=== PATIENT | female | born 1945 | race Caucasian/White ===

== ENCOUNTER 2017-06-17 13:18 | Inpatient (IN) | payer MEDICARE, OTHER ==
[~2017-06-17 13:18] MED LIST: ceFAZolin SODIUM 1 GM VIAL IV PRN
[2017-06-17] MEDS ORDERED: MORPHINE SULFATE 4 MG/ML SYRG SC ONE (13:30)
[2017-06-17] MEDS ORDERED: MORPHINE SULFATE 4 MG/ML SYRG ONE (13:34)
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
[2017-06-17] MEDS ORDERED: DEXTROSE 5%-LACTATED RINGERS 1,000 ML IV PRN (14:34)
[2017-06-17] MEDS ORDERED: BUPIVACAINE HCL 50 ML VIAL IJ ONE (15:00)
[2017-06-17 15:12] LABS: Hemoglobin 13.4 gm/dL (12.5-16.0); Mean Cell Volume 97.3 fl (78-100); Mean Corpuscular Hemoglobin 33.4 pg (27-31); Mean Corpuscular Hgb Conc 34.4 g/dl (32-36); Mean Platelet Volume 9.5 fl (6.0-9.5); Neutrophil # 6.4 K/mm3 (1.3-6.0); Neutrophil % 79.6 % (42-75.0); Platelet Count 231 K/mm3 (150-450); Red Blood Count 4.01 M/mm3 (4.2-5.4); Red Cell Distribution Width 12.5 % (11.5-14.0); White Blood Count 8.1 K/mm3 (4.0-10.5)
[2017-06-17 15:14] LABS: INR 1.01 INR (0.90-1.10); Prothrombin Time (Patient) 10.1 Seconds (9.0-11.0)
[2017-06-17 15:17] LABS: Albumin * 3.7 gm/dl (3.4-5.0); BUN/Creatinine Ratio 14.4 (9.0-21.6); Bilirubin, Total 0.4 mg/dL (0.0-1.1); Ca. Corrected For Albumin 8.6 mg/dL (8.4-10.2); Calcium * 8.7 mg/dL (7.9-10.9); Carbon Dioxide 26.8 mmol/L (24-32.6); Potassium 3.8 mmol/L (3.4-4.6)
--- NOTE | 2017-06-17 16:41 | CONS ---
HPI - General Date of Service: 06/17/17 Narrative: Alice is a 72 yo F who tripped and fell from standing height while cleaning her garage today. She sustained a displaced, valgus impacted L femoral neck fracture and a comminuted intraarticular L distal radius fracture. She was initially evaluated in the [facility] ED and workup revealed the above injuries. I saw her in consultation in the ED. Her biggest complaint was pain and muscle spasm of the L thigh as well as L wrist pain and numbness in the radial 3 fingers of the L hand. She denied hitting her head or LOC. She is an independent community ambulator. - History of Present Illness Allergies/Adverse Reactions: Allergies No Known Allergies Allergy (Unverified 04/28/16 11:36) Home Medications: Home Medications Medication Instructions Recorded Last Taken NK [No Home Medication] 04/08/16 Unknown - Patient's Past Medical History Patient History - Medical: No pertinent hx Patient History - Cardiac/Respiratory: No pertinent hx Patient History - Cancer: No Hx of Cancer Patient History - Surgical Procedures: Colonoscopy, Hysterectomy, Other Patient History - Other: None LMP (females 10-50): Menopausal - Family History Mother Family History - Medical: , Other Family History - Cardiac/Respiratory: No pertinent hx Father Family History - Medical: , Diabetes Type 2, Seizures, Other Family History - Cardiac/Respiratory: No pertinent hx Sister Family History - Medical: No pertinent hx Family History - Cardiac/Respiratory: Asthma - Social History Living Situations: home Abuse History: No History of abuse Psych History: No pertinent hx Smoking Status: Former smoker Have you smoked in the past 12 months: No Alcohol Use: occasionally Drug Use: none - Immunizations Immunizations Up to Date: Yes Hx Pneumococcal Vaccination: Yes History of Influenza Vaccine: No Procedures EXCISION OF LARGE INTESTINE, ENDO, DIAGN (04/28/16) Review of Systems - Review of Systems Narrative: As per HPI, otherwise negative. Physical Examination - Exam Narrative: Gen: A&Ox4, NAD Resp: breathing nonlabored on room air MSK: LLE--> TTP about hip, pain with any attempted ROM, spasm of quads and hamstrings noted, 5/5 EHL/FHL/DF/PF, SILT, palpable DP pulse. LUE--> dorsal angulation deformity at wrist, swollen, diffuse TTP, diminished sensation to light tough in median nerve distribution, cap refill of fingers <3 sec. Radiology: Plain films of the L hip demonstrate a displaced and valgus impacted subcapital femoral neck fracture, Dohr B bone of proximal femur. Plain films of the L wrist demonstrate a displaced and dorsally angulated intraarticular distal radius fracture with prominent volar spike. Vital Signs: Vital Signs - Last Taken Temp 37.1 C 06/17/17 15:47 Pulse 75 06/17/17 15:47 Resp 17 06/17/17 15:47 BP 101/60 06/17/17 15:47 Pulse Ox 98 06/17/17 15:47 O2 Oxygen Delivery Method Room Air - Results and Findings: Narrative: 72 yo F w/ displaced, valgus impacted L subcapital femoral neck fracture and displaced intraarticular L distal radius fracture after fall from standing height. - counseled patient on need for closed reduction and splinting of her L distal radius secondary to median nerve symptoms. I counseled her on the risks and benefits and she consented to proceed. A closed reduction under hematoma block with placement of a sugar tong splint was performed in the ED without complication. See procedure note for details. - I counseled her on treatment options for her L femoral neck fracture including nonoperative treatment with bedrest and pain control, percutaneous pinning, and total hip arthroplasty. Given her age, activity level, and the fracture pattern, I recommended total hip arthroplasty. I counseled her on the risks and benefits including, but not limited to, infection, bleeding, neurovascular injury, aseptic loosening, fracture, persistent pain, persistent limp, leg length discrepancy, DVT/PE, and risks with anesthesia. After discussion she wishes to proceed. - I also counseled her on definitive treatment options for her L distal radius fracture and recommended ORIF as this represents a polytrauma and she will likely require the use of a walker/assistive device secondary to hip surgery. Fixation of her wrist fracture will allow early weight bearing and improved mobility. I counseled her on the risks and benefits including, but not limited to, infection, neurovascular injury, malunion/nonunion, arthrosis, persistent pain, stiffness, wound complications, and risks with anesthesia. After discussion, she wishes to proceed. - Plan for L total hip arthroplasty and ORIF L distal radius tomorrow. - Admit to Medicine service - bedrest, ho, NPO @ midnight, Ancef 2 g pre-op Lab/Microbiology results last 24 hrs: Abnormal/Pending Laboratory Last 24 HRS 06/17/17 06/17/17 15:00 15:00 RBC 4.01 L MCH 33.4 H Neutrophils % 79.6 H Lymphocytes % 13.8 L Neutrophils # 6.4 H Lymphocytes # 1.1 L Anion Gap 14.0 H ALT 16 L - Assessments/Findings (1) Fracture of hip, left, closed Problem: Acute Qualifiers: Encounter type: initial encounter Qualified Code(s): S72.002A - Fracture of unspecified part of neck of left femur, initial encounter for closed fracture (2) Fracture of wrist Problem: Acute Qualifiers: Encounter type: initial encounter Fracture type: closed Laterality: left Qualified Code(s): S62.102A - Fracture of unspecified carpal bone, left wrist , initial encounter for closed fracture
[2017-06-17] MEDS ORDERED: FLU VACC QS2017-18(6MOS UP)/PF 60 MCG/0.5 ML SYRINGE IM ONE (17:00)
[2017-06-17] MEDS: MORPHINE SULFATE 4 MG/ML SYRG IV PRN (20:27)
[2017-06-17] MEDS: DEXTROSE 5%-NORMAL SALINE 1,000 ML IV PRN (20:47)
--- NOTE | 2017-06-17 21:02 | HP ---
Chief Complaint - Chief Complaint Date of Service: 06/17/17 Time of Service: 21:01 Chief Complaint: "Lost balance and fell". Source of HPI- Pt; reliable, ERP report. History of Present Illness: Mrs. Rossi is a 72-yr-old WF pt of Dr. Charlene Khan, family practice physician in [place]. She has no pertinent medical history. Pt states that she was on a two step ladder in her garage putting away stuff from the summer and while stepping down, she missed a step and fell on the Left side of her body. She heard her LT wrist snap during the fall. She denies hitting her head on surface or objects. Also,there was no loss of consciousness with the fall. She managed to walk back inside to the house where she called her son to bring her to the [facility] ER. At the ED, she had multiple radiographic imaging of her LT hip/ pelvis and LT wrist which showed: Fracture of femoral Neck and comminuted intraarticular LT distal radius fracture. Orthopedics (Dr. Nowak) consulted by the ERP and pt was seen and evaluated by him at the ED. The plan is for surgery tomorrow once medically cleared. Pt will be admitted inpatient due to surgical procedure that requires pre-operative and post operative management. - Patient's Past Medical History Patient History - Medical: No pertinent hx Patient History - Cardiac/Respiratory: No pertinent hx Patient History - Cancer: No Hx of Cancer Patient History - Surgical Procedures: Colonoscopy, Hysterectomy, Other Patient History - Other: None LMP (females 10-50): Menopausal - Family History Mother Family History - Medical: , Other Family History - Cardiac/Respiratory: No pertinent hx Family History - Cancer: No pertinent family hx Father Family History - Medical: , Diabetes Type 2, Seizures, Other Family History - Cardiac/Respiratory: No pertinent hx Family History - Cancer: No pertinent family hx Sister Family History - Medical: No pertinent hx Family History - Cardiac/Respiratory: Asthma Family History - Cancer: No pertinent family hx - Social History Living Situations: home Abuse History: No History of abuse Psych History: No pertinent hx Smoking Status: Former smoker Have you smoked in the past 12 months: No Do you dip or chew tobacco: No Patient requests Smoking Cessation Consult: No Initiate information on Smoking Cessation: No Alcohol Use: occasionally Drug Use: none - Immunizations Immunizations Up to Date: Yes Hx Pneumococcal Vaccination: Yes History of Influenza Vaccine: No Review Of Systems (GEN) - Review of Systems Generalized/Overall Review: Absent: Weakness, Chills, Fever, Malaise, Fatigue EENTM: Absent: Eye Pain, Blurred Vision, Nose Congestion Respiratory: Present: Cough. Absent: Shortness of Breath, Orthopnea Cardiac: Absent: Chest Pain, Edema, Palpitations, Syncope Abdominal: Absent: Nausea, Vomiting, Hematemesis, Abdominal Pain, Constipation Genitourinary: Absent: Burning, Itching, Urgency, Frequency Musculoskeletal: Present: Joint Pain. Absent: Back Pain, Joint Swelling Neurological: Absent: Headache, Anxiety, Depressed, Numbness Skin: Absent: Dryness, Lesions Endocrine: Absent: Intolerance to Cold, Flushing, Increased Thirst Misc: All systems neg except as marked Immunizations: IMMUNIZATION HX Immunizations Up to Date Yes History of Influenza Vaccine No Hx Pneumococcal Vaccination Yes Allergies/Adverse Reactions: Allergies Allergy/AdvReac Type Severity Reaction Status Date / Time No Known Allergies Allergy Unverified 04/28/16 11:36 Home Medications: HOME MEDICATIONS NK [No Home Medication] 04/08/16 [Last Taken Unknown] Exam - Exam Vital Signs: Vital Signs - Last Taken Temp 36.7 C 06/17/17 16:05 Pulse 77 06/17/17 16:05 Resp 18 06/17/17 16:05 BP 138/79 06/17/17 16:05 Pulse Ox 96 06/17/17 16:05 Constitutional: Present: Alert, Oriented x3, Cooperative, No distress ENT Exam: Present: normal ENT inspection, hearing grossly normal. Absent: nasal drainage, pharyngeal erythema Eye Exam: bilateral eye: normal inspection, PERRL Neck: Present: non-tender, full range of motion, supple Back Exam: Present: normal inspection, no CVA tenderness Breasts: Present: Exam deferred Respiratory: Present: lungs clear, No rales, No wheezing Cardiovascular/Chest: Present: normal peripheral pulses, regular rate, rhythm, no chest tenderness Abdomen: Present: Normal bowel sounds, soft, nontender /Rectal: Present: Exam deferred Extremity: Present: other - Limited ROM on LLE. Splinted LUE. Skin Exam: Present: warm/dry, no cyanosis Lymphatic: Present: no adenopathy Neurologic: Present: no motor/sensory deficits, alert, oriented x 3 Appearance: Present: appropriate appearance, appropriate insight Eye contact: Present: cooperative, good eye contact, normal speech Thoughts: Present: normal thought pattern, no apparent hallucination Diagnostic Studies: Abnormal Lab Results 06/17/17 06/17/17 Range/Units 15: 15:00 RBC 4.01 L (4.2-5.4) M/mm3 MCH 33.4 H (27-31) pg Neutrophils % 79.6 H (42-75.0) % Lymphocytes % 13.8 L (20-51) % Neutrophils # 6.4 H (1.3-6.0) K/mm3 Lymphocytes # 1.1 L (1.5-3.5) k/mm3 Anion Gap 14.0 H (6.8-13.8) mmol/L ALT 16 L (19-67) U/L Laboratory Results WBC 8.1 K/mm3 (4.0-10.5) 06/17/17 15:00 RBC 4.01 M/mm3 (4.2-5.4) L 06/17/17 15:00 Hgb 13.4 gm/dL (12.5-16.0) 06/17/17 15:00 Hct 39.0 % (37.0-47.0) 06/17/17 15:00 MCV 97.3 fl (78-100) 06/17/17 15:00 MCH 33.4 pg (27-31) H 06/17/17 15:00 MCHC 34.4 g/dl (32-36) 06/17/17 15:00 RDW 12.5 % (11.5-14.0) 06/17/17 15:00 Plt Count 231 K/mm3 (150-450) 06/17/17 15:00 MPV 9.5 fl (6.0-9.5) 06/17/17 15:00 Immature Gran % (Auto) 0.40 % (0.001-0.429) 06/17/17 15:00 Immature Gran # (Auto) 0.03 K/mm3 (0.000-0.0310) 06/17/17 15:00 Neutrophils % 79.6 % (42-75.0) H 06/17/17 15:00 Lymphocytes % 13.8 % (20-51) L 06/17/17 15:00 Monocytes % 5.2 % (0.0-9) 06/17/17 15:00 Eosinophils % 0.6 % (0.0-3.0) 06/17/17 15:00 Basophils % 0.4 % (0.0-1.0) 06/17/17 15:00 Nucleated RBC % 0.0 k/mm3 (0-1) 06/17/17 15:00 Neutrophils # 6.4 K/mm3 (1.3-6.0) H 06/17/17 15:00 Lymphocytes # 1.1 k/mm3 (1.5-3.5) L 06/17/17 15:00 Monocytes # 0.4 k/mm3 (0.0-1.0) 06/17/17 15:00 Eosinophils # 0.1 k/mm3 (0.0-0.7) 06/17/17 15:00 Absolute Basophils 0.0 k/mm3 (0.0-0.1) 06/17/17 15:00 PT 10.1 Seconds (9.0-11.0) 06/17/17 15:00 INR (Anticoag Therapy) 1.01 INR (0.90-1.10) 06/17/17 15:00 Sodium 135 mmol/L (132-142) 06/17/17 15:00 Plasma Sodium 135 mmol/L (130-142) 06/17/17 15:00 Potassium 3.8 mmol/L (3.4-4.6) 06/17/17 15:00 Chloride 98 mmol/L (97-106) 06/17/17 15:00 Carbon Dioxide 26.8 mmol/L (24-32.6) 06/17/17 15:00 Anion Gap 14.0 mmol/L (6.8-13.8) H 06/17/17 15:00 BUN 13 mg/dL (3-23) 06/17/17 15:00 Creatinine 0.90 mg/dL (0.4-1.4) 06/17/17 15:00 Est GFR (Non-Af Amer) 66 mL/min (60-130) 06/17/17 15:00 BUN/Creatinine Ratio 14.4 (9.0-21.6) 06/17/17 15:00 Random Glucose 92 mg/dL (70-110) 06/17/17 15:00 Calcium 8.7 mg/dL (7.9-10.9) 06/17/17 15:00 Calcium Adj for Albumin 8.6 mg/dL (8.4-10.2) 06/17/17 15:00 Total Bilirubin 0.4 mg/dL (0.0-1.1) 06/17/17 15:00 AST 22 U/L (0-48) 06/17/17 15:00 ALT 16 U/L (19-67) L 06/17/17 15:00 Alkaline Phosphatase 72 U/L (50-170) 06/17/17 15:00 Troponin I Less than 0.017 ng/ml (0.00-0.10) 06/17/17 14:55 Total Protein 7.0 gm/dL (6.2-8.2) 06/17/17 15:00 Albumin 3.7 gm/dl (3.4-5.0) 06/17/17 15:00 Blood Type B Positive 06/17/17 15:00 Antibody Screen Negative 06/17/17 15:00 Assessment/Plan - Assessment/Plan (1) Fracture of hip, left, closed Assessment: Pt is a 72-yr-old WF pt who sustained LT hip fracture following a fall which appeared to be accidental. She has no pertinent medical history. The work-up at the ED showed unremarkable Hemogram, chemisties, Troponin and anticoag. studies. The CXR did not have any acute findings. The EKG showed NSR. According to RCRI, she has a score of 0 which is a class 1 out of 4 which carries a 0.4% chance of developing a major cardiac event postoperatively and postoperatively. She is clear to proceed with surgery as the benefits outweighs the risks of not doing any. Will provide supportive cares with: Pain mgt, immobilization, IVF hydration, keep NPO, monitor labs in am. Problem: Acute Qualifiers: Encounter type: initial encounter Qualified Code(s): S72.002A - Fracture of unspecified part of neck of left femur, initial encounter for closed fracture (2) Fracture of wrist Assessment: Evaluated by Ortho. She had closed reduction and splinting of her LT distal radius with the plan for ORIF in am. Problem: Acute Qualifiers: Encounter type: initial encounter Fracture type: closed Laterality: left Qualified Code(s): S62.102A - Fracture of unspecified carpal bone, left wrist , initial encounter for closed fracture
[2017-06-17] MEDS ORDERED: CYCLOBENZAPRINE HCL 10 MG TABLET PO PRN (21:16)
[2017-06-17] MEDS ORDERED: ONDANSETRON HCL/PF 2 MG/ML VIAL IV PRN (23:04)
[2017-06-18] MEDS: MORPHINE SULFATE 4 MG/ML SYRG IV PRN ×2 (00:31→06:57)
[2017-06-18] MEDS: DEXTROSE 5%-NORMAL SALINE 1,000 ML IV PRN ×2 (06:52→20:51)
--- NOTE | 2017-06-18 06:56 | PN ---
Subjective - Date and Time Seen Date: 06/18/17 Time: 06:50 Subjective Narrative: Pt seen this am. She is alert and in no distress. Anticipating surgery this am. No issues overnight according to nursing. Objective - Vitals Vitals: Last Vital Signs Temp 36.5 C 06/18/17 06:44 Pulse 72 06/18/17 06:44 Resp 18 06/18/17 06:44 BP 94/61 06/18/17 06:44 Pulse Ox 96 06/18/17 06:44 - Abnormal Lab Findings Abnormal Lab Findings: Abnormal Lab Results 06/17/17 06/17/17 Range/Units 15:00 15:00 RBC 4.01 L (4.2-5.4) M/mm3 MCH 33.4 H (27-31) pg Neutrophils % 79.6 H (42-75.0) % Lymphocytes % 13.8 L (20-51) % Neutrophils # 6.4 H (1.3-6.0) K/mm3 Lymphocytes # 1.1 L (1.5-3.5) k/mm3 Anion Gap 14.0 H (6.8-13.8) mmol/L ALT 16 L (19-67) U/L - Exam Constitutional: Present: Alert, Oriented x3, Cooperative, No distress ENT Exam: Present: normal ENT inspection Neck: Present: non-tender, full range of motion, supple Breasts: Present: Exam deferred Respiratory: Present: lungs clear, No rales, No wheezing Cardiovascular/Chest: Present: normal peripheral pulses, regular rate, rhythm, no chest tenderness, no edema Abdomen: Present: Normal bowel sounds, soft, nontender /Rectal: Present: Exam deferred Extremity: Present: other - Limited ROM on LLE & Splint on LUE. Skin Exam: Present: warm/dry Lymphatic: Present: no adenopathy Neurologic: Present: no motor/sensory deficits, alert, oriented x 3 Appearance: Present: appropriate appearance, appropriate insight Eye contact: Present: cooperative, good eye contact, normal speech Thoughts: Present: normal thought pattern, no apparent hallucination [facility]auti Physician Documentation - Urinary Catheter Management Urethral ([place]ry) Date of Insertion: 06/17/17 Time of Insertion: 21:30 Assessment/Plan - Problems/Diagnosis (1) Fracture of hip, left, closed Problem: Acute Qualifiers: Encounter type: initial encounter Qualified Code(s): S72.002A - Fracture of unspecified part of neck of left femur, initial encounter for closed fracture Narrative: Pt is a 72-yr-old WF pt who sustained LT hip fracture following a fall which appeared to be accidental. She has no pertinent medical history. The work-up at the ED showed unremarkable Hemogram, chemisties, Troponin and anticoag. studies. The CXR did not have any acute findings. The EKG showed NSR. According to RCRI, she has a score of 0 which is a class 1 out of 4 which carries a 0.4% chance of developing a major cardiac event postoperatively and postoperatively. She is clear to proceed with surgery as the benefits outweighs the risks of not doing any. Will provide supportive cares with: Pain mgt, immobilization, IVF hydration, keep NPO, monitor labs. (2) Fracture of wrist Problem: Acute Qualifiers: Encounter type: initial encounter Fracture type: closed Laterality: left Qualified Code(s): S62.102A - Fracture of unspecified carpal bone, left wrist , initial encounter for closed fracture Narrative: Evaluated by Ortho. She had closed reduction and splinting of her LT distal radius with the plan for ORIF today.
[2017-06-18 08:21] LABS: Hematocrit 37.3 % (37.0-47.0); Hemoglobin 12.6 gm/dL (12.5-16.0); Mean Cell Volume 97.9 fl (78-100); Mean Corpuscular Hemoglobin 33.1 pg (27-31); Mean Corpuscular Hgb Conc 33.8 g/dl (32-36); Mean Platelet Volume 8.9 fl (6.0-9.5); Neutrophil # 3.9 K/mm3 (1.3-6.0); Platelet Count 199 K/mm3 (150-450); Red Blood Count 3.81 M/mm3 (4.2-5.4); Red Cell Distribution Width 12.8 % (11.5-14.0); White Blood Count 5.1 K/mm3 (4.0-10.5)
[2017-06-18 08:26] LABS: BUN/Creatinine Ratio 11.8 (9.0-21.6); Calcium * 8.1 mg/dL (7.9-10.9); Carbon Dioxide 30.6 mmol/L (24-32.6); Estimated Creat Clear 61.2; Potassium 3.6 mmol/L (3.4-4.6)
[2017-06-18] MEDS ORDERED: ceFAZolin SODIUM/DEXTROSE,ISO 2 GM/50 ML BAG IV ONE (09:00)
[2017-06-18] MEDS ORDERED: RINGER'S SOLUTION,LACTATED 1,000 ML IV ONE ×3 (12:55→15:59)
[2017-06-18] MEDS ORDERED: ceFAZolin SODIUM 1 GM VIAL IV ONE (13:30)
[2017-06-18] MEDS: VANCOMYCIN HCL 1 GM VIAL TP ONE (15:00)
[2017-06-18] MEDS ORDERED: BUPIVACAINE HCL 50 ML VIAL IJ ONE (16:30)
[2017-06-18] MEDS ORDERED: ONDANSETRON HCL/PF 2 MG/ML VIAL IV PRN (17:51)
[2017-06-18] MEDS ORDERED: MAG HYDROX/ALUMINUM HYD/SIMETH 30 ML UDC PO PRN (17:51)
[2017-06-18] MEDS ORDERED: MAGNESIUM HYDROXIDE 30 ML UDC PO PRN (17:51)
[2017-06-18] MEDS ORDERED: MORPHINE SULFATE 2 MG/ML DISP.SYRIN IV PRN (17:51)
[2017-06-18] MEDS ORDERED: PROMETHAZINE HCL 5 MG in DEXTROSE 5 % IN WATER 50 ML IV PRN ×2 (17:51)
[2017-06-18] MEDS ORDERED: diphenhydrAMINE HCL 50 MG/ML VIAL IV PRN (17:51)
[2017-06-18] MEDS ORDERED: oxyCODONE HCL/ACETAMINOPHEN 1 TAB TABLET PO PRN (17:51)
--- NOTE | 2017-06-18 18:11 | OR ---
Operative Report - Dictated Report Narrative: Date: 06/18/2017 Preoperative diagnosis: 1. Left displaced, subcapital femoral neck fracture 2. Left displaced, intra-articular distal radius fracture Postoperative diagnosis: 1. Left displaced, subcapital femoral neck fracture 2. Left displaced, intra-articular distal radius fracture with 2 articular fragments Procedure: 1. Left Total hip arthroplasty. 2. Open reduction internal fixation of left intra-articular distal radius fracture with 2 articular fragments Surgeon: Dalton Nowak M.D. Aluminum Siding Applicator: Alejandro Ramirez PA-C Anesthesia: General with spinal anesthetic for pain control Complications: None Tourniquet time: 74 minutes at 250 mmHg left upper extremity Specimens: Bone for disposal. Estimated blood loss: 250 milliliters. Retained implants: Depuy [place] size 5 femoral stem standard offset. Size 58 millimeter ouside diameter 3-hole [place] Gription acetabular cup. 58 millimeter outside by D6 millimeter inside diameter highly cross-linked acetabular liner. 36 millimeter diameter + 8.5 millimeter cobalt chromium femoral head. Cancellous 6.5mm screw 30 millimeter length. [employer] D-rad standard distal radius locking plate with associated screws. Indications: Alice Is a 72-year-old female independent community ambulator who sustained a displaced left femoral neck fracture as well as a displaced left intra-articular distal radius fracture after a fall from a ladder in her garage. She was initially seen in the [facility] ED where workup revealed the above injuries. I discussed treatment options with her and based on her activity level, polytrauma, and fracture patterns, I recommended left total hip arthroplasty as well as open reduction internal fixation of her left distal radius fracture. Patient wished to proceed with surgical treatment. The risks , benefits, and alternatives were discussed in clinic. The risks of , blood clots, bleeding, infection, nerve/tendon blood vessel/ injury, malposition of components, dislocation and/or instability of joint, intraoperative fracture, postoperative limited range of motion, persistent pain , failure of components, and need for additional procedures. Patient wished to proceed. Consent was obtained after answering all questions. Procedure: After marking the correct extremity on the floor, the patient was taken to the operating room. A timeout was performed. IV antibiotics consisting of 2 g of Ancef were administered prior to the procedure. A spinal anesthetic was induced by anesthesia. A Landry catheter was inserted. The patient was then transitioned to a lateral position on a well-padded pegboard. And an axillary roll was placed. The head was in neutral position. The non- operative down leg was well-padded with SCD and MICHELLE hose in place. The arms were supported and padded to protect from any undue pressure on the bony prominences and nerves. Well-padded anterior and posterior pelvic and chest posts were secured in order to maintain a stable position of the pelvis. This was placed so that the pelvis was perpendicular to the floor. The body was in line with the pelvis. Once it was felt that we had protected all the bony prominences and the patient was well secured with a safety belt as well, the leg was pre-scrubbed with alcohol, prepped and draped in a standard sterile fashion. A standard anterior lateral hip incision was marked out over the greater trochanter. [place]an drapes were then placed. The skin incision was then made. Sharp dissection with a scalpel utilizing cautery for hemostasis was carried out down to the gluteus and iliotibial band fascia. This was split in line with the skin incision. The greater trochanter bursa was excised. The anterior and posterior margins of the abductor tendon were identified. The anterior 1/3 of the tendon was tagged and reflected off the greater trochanter leaving a sleeve of tendon for repair at the completion of the case. This exposed the underlying hip joint capsule. A limb length stitch was placed in the skin and referenced off a dsuty on the greater trochanter for evaluation of intraoperative limb lengths. An inverted T-type capsulotomy was made extending this up to the brim of the acetabulum. Using Homans to assist with elevation of the soft tissues off the anterior, superior, and inferior aspects of the femoral neck, the hip was then placed in a figure 4 position and the femoral neck fracture was completed leaving the femoral head in the acetabulum. With the leg in an externally rotated and adducted position, the cutting flag was utilized in order to dusty for a standard femoral neck cleanup cut approximately a fingerbreadth above the level of the lesser trochanter. This was done while protecting the surrounding soft tissues with Homans. The femoral head was then removed with a corkscrew and sized for guidance on preparation of the acetabulum. It was noted that there was minimal cartilage degeneration on both the femoral head and weightbearing portions of the acetabulum. We then returned the leg to the table and turned our attention to the acetabulum. While protecting the surrounding soft tissues, the labrum and remaining tissue in the fovea were excised using a scalpel and cautery. A series of reamers up to size 57 millimeter were utilized to prepare the acetabulum. The final reamer had good purchase and exposed the bleeding subchondral bone. The acetabulum was then thoroughly irrigated ensuring that all bony and cartilaginous materials were removed and the final acetabular shell was impacted into place. This was placed in approximately 45 degrees of abduction and 20 degrees of anteversion utilizing the outrigger and body axis for alignment. This had a good press fit. A 30 x 6.5mm cancellous screw was placed in the posterior superior quadrant of the acetabulum. The shell was then thoroughly irrigated and the final polyethylene was impacted into place ensuring that it seated completely. This was then protected with a sponge while we returned our attention to the femur. With the leg in a figure 4 position utilizing Homans for soft tissue protection , a box cutting osteotome, followed by Charnley awl, followed by serial reamers and broaches were utilized in order to prepare the femur. It was found that a size 5 broach gave good axial and rotational stability. The calcar reamer was utilized in order to clean up the cut edges. The proximal femur was visualized to ensure that there were no signs of fracture. A series of heads and necks were trialed. It was found that a standard neck and a + 8.5 mm femoral head gave good overall stability. There was minimal longitudinal instability. With the leg in the position of sleep the femoral head was well covered. Hip range of motion was able to reach full extension and external rotation to greater than 75 degrees prior to impingement along the posterior acetabulum. The hip was able to be flexed to greater than 90 degrees with internal rotation greater than 60 degrees prior to anterior impingement. The limb lengths were near equal based on comparison to the contralateral side in the prior placed limb length stitch. At this point the trial implants were removed. The femur was thoroughly irrigated. The final implants were impacted in the place and the hip was reduced. 1 g of vancomycin powder was placed in the joint for infection prophylaxis. The capsule was repaired with interrupted #1 Vicryl. The abductor tendon was repaired to the greater trochanter utilizing #5 Ethibond through drill holes. This was oversewn with #1 Vicryl. The fascia was closed with interrupted #1 Vicryl. The wounds were thoroughly irrigated as we closed in layers. The deep fat layers were closed with 0 Vicryl. The subcutaneous tissue was closed with interrupted 3-0 Vicryl and the skin with a running subcuticular 3-0 monocryl and sealed with a Prineo dressing. All sponge, needle , blade, and instrument counts were correct prior to closing the wounds. Sterile dressings consisting of 4 x 4's, ABD, and tape were applied. At this point all drapes were taken down and the patient was transitioned to the supine position on the operating table in preparation for ORIF of her distal radius. An arm board was attached to the left side of the table. All bony prominences were well-padded. A well-padded tourniquet was applied to the upper surgical arm. The arm was pre-scrubbed with chlorhexidine and prepped and draped in a standard sterile fashion. After exsanguinating the extremity and inflating the tourniquet to 250 mmHg, a longitudinal incision was made over the flexor carpi radialis. This was sharply dissected down through the skin to the tendon sheath. This was incised in line with the tendon. The tendon was mobilized radially and the deep fascia was incised. The flexor pollicis longus was mobilized ulnarly exposing the pronator quadratus. Pronator quadratus was elevated off the radial aspect of the distal radius exposing the fracture. The fracture was noted to be primarily extra-articular with a small dorsal lunate facet fragment. Using mini C-arm, the fracture was reduced and preliminarily pinned in place through the radial styloid. Once it was felt that we adequately preliminarily stabilized the fracture, the plate was pinned into place. This was visualized on AP and lateral views to be centered over the distal radius as well as not excessively distal. Once it was felt that the plate was in the correct position a series of distal locking and proximal non- locking screws were placed. Mini C-arm was utilized in order to confirm the length and placement of the screws. We were able to capture the dorsal lunate facet fragment with the ulnar-most locking screw through the plate. Once the wrist was stabilized, final images were obtained to ensure that the screws were not prominent dorsally nor into the joint space. The distal radial ulnar joint was then stressed in supination and pronation and neutral, and it was noted to be stable. It was felt that the fracture was adequately stabilized and the wounds were then thoroughly irrigated. Skin was closed with interrupted 4-0 nylon. Sterile dressings consisting of Xeroform, 4 x 4, soft roll, and a well- padded dorsal plaster short arm splint was applied. All sponge, sharp, and instrument counts were correct prior to closing the wounds. The patient was awoken and transferred to the postanesthesia care unit in stable condition. Postoperative condition: The plan is to admit to the medical/surgical inpatient floor postoperatively. There will be a projected 2 to 4 day hospital stay. Postoperatively 24 hours of IV antibiotics, pain control, physical therapy, occupational therapy, and medical comanagement will be utilized. Patient will be weightbearing as tolerated with anterior hip precautions and weightbearing as tolerated to the left elbow with a platform walker. Postoperative films will be obtained in the recovery room.
[2017-06-18] MEDS: ceFAZolin SODIUM 1 GM in DEXTROSE 5 % IN WATER 100 ML IV SCH ×2 (20:49)
[2017-06-18] MEDS: SENNOSIDES/DOCUSATE SODIUM 1 TAB TABLET PO SCH (22:18)
[2017-06-19] MEDS: ceFAZolin SODIUM 1 GM in DEXTROSE 5 % IN WATER 100 ML IV SCH ×4 (01:26→09:40)
[2017-06-19 06:06] LABS: Hematocrit 34.5 % (37.0-47.0); Hemoglobin 11.6 gm/dL (12.5-16.0); Mean Cell Volume 98.6 fl (78-100); Mean Corpuscular Hemoglobin 33.1 pg (27-31); Mean Corpuscular Hgb Conc 33.6 g/dl (32-36); Mean Platelet Volume 9.5 fl (6.0-9.5); Platelet Count 181 K/mm3 (150-450); Red Cell Distribution Width 13.1 % (11.5-14.0); White Blood Count 8.3 K/mm3 (4.0-10.5)
[2017-06-19 06:15] LABS: Anion Gap 13.2 mmol/L (6.8-13.8); BUN/Creatinine Ratio 9.9 (9.0-21.6); Calcium * 8.2 mg/dL (7.9-10.9); Carbon Dioxide 27.6 mmol/L (24-32.6); Estimated Creat Clear 64.3; Potassium 3.8 mmol/L (3.4-4.6)
--- NOTE | 2017-06-19 06:39 | PN ---
Subjective - Date and Time Seen Date: 06/19/17 Time: 06:39 Subjective Narrative: Pt examined this am. Is having a lot of discomfort from pain. Was afraid to request for pain medication for "fear of addiction." No other acute events overnight according to nursing. Objective - Vitals Vitals: Last Vital Signs Temp 37.5 C 06/19/17 02:45 Pulse 68 06/19/17 02:45 Resp 15 06/19/17 02:45 BP 109/57 06/19/17 02:45 Pulse Ox 92 06/19/17 02:45 - Abnormal Lab Findings Abnormal Lab Findings: Abnormal Lab Results 06/18/17 06/19/17 06/19/17 Range/Units 08:11 06:00 06:00 RBC 3.81 L 3.50 L (4.2-5.4) M/mm3 Hgb 11.6 L (12.5-16.0) gm/dL Hct 34.5 L (37.0-47.0) % MCH 33.1 H 33.1 H (27-31) pg Neutrophils % 76.0 H (42-75.0) % Lymphocytes % 16.0 L (20-51) % Lymphocytes # 0.8 L (1.5-3.5) k/mm3 Random Glucose 128 H D (70-110) mg/dL - Exam Constitutional: Present: Alert, Oriented x3, Cooperative, No distress ENT Exam: Present: normal ENT inspection, hearing grossly normal Neck: Present: non-tender, full range of motion, supple Breasts: Present: Exam deferred Respiratory: Present: lungs clear, No rales, No wheezing Cardiovascular/Chest: Present: normal peripheral pulses, regular rate, rhythm, no edema Abdomen: Present: Normal bowel sounds, soft, nontender /Rectal: Present: Exam deferred Extremity: Present: other - Surgical site on LT hip and LUE. Skin Exam: Present: warm/dry Lymphatic: Present: no adenopathy Neurologic: Present: alert, normal mood/affect, oriented x 3 Appearance: Present: appropriate appearance, appropriate insight Eye contact: Present: cooperative, good eye contact, normal speech Thoughts: Present: normal thought pattern, no apparent hallucination Cauti Physician Documentation - Urinary Catheter Management Urethral (Landry) Date of Insertion: 06/18/17 Time of Insertion: 08:58 Assessment/Plan - Problems/Diagnosis (1) Fracture of hip, left, closed Problem: Acute Qualifiers: Encounter type: initial encounter Qualified Code(s): S72.002A - Fracture of unspecified part of neck of left femur, initial encounter for closed fracture Narrative: POD # 1 for 1 Left total hip arthroplasty. Follow Othor recommendations: Pain control, Anticoagulation, bowel regimen, WBAT, PT/OT to progress as tolerated, Monitor H&H. (2) Fracture of wrist Problem: Acute Qualifiers: Encounter type: initial encounter Fracture type: closed Laterality: left Qualified Code(s): S62.102A - Fracture of unspecified carpal bone, left wrist , initial encounter for closed fracture Narrative: POD # 1 for ORIF. Plan as above.
[2017-06-19] MEDS: oxyCODONE HCL/ACETAMINOPHEN 1 TAB TABLET PO PRN ×2 (06:59→13:36)
[2017-06-19] MEDS: VANCOMYCIN HCL 1 GM VIAL TP ONE (09:13)
--- NOTE | 2017-06-19 14:26 | PN ---
Progess Note - Interim Narrative: 06/17/17 17:00 Patient was seen and examined on 06/17/2017 at bedside on arrival from the ER after sustaining a LT comminuted, intra-articular angulated distal radial fracture, probable ulnar styloid fracture and an impacted fracture of the left femoral neck when she fell off a stepladder. She does not take any medications. Denies any cardiac history. No recent hospitalizations. Labs reviewed which were relatively WNL.
--- NOTE | 2017-06-19 14:54 | PN ---
Subjective - Date and Time Seen Date: 06/19/17 Time: 08:15 Subjective Narrative: Pt reports no acute overnight events. She reports her pain is minimal for her wrist or hip. She is otherwise feeling well. Objective - Vitals Vitals: Last Vital Signs Temp 36.7 C 06/19/17 10:35 Pulse 72 06/19/17 10:35 Resp 16 06/19/17 10:35 BP 105/66 06/19/17 10:35 Pulse Ox 100 06/19/17 10:35 - Abnormal Lab Findings Abnormal Lab Findings: Abnormal Lab Results 06/19/17 06/19/17 Range/Units 06:00 06:00 RBC 3.50 L (4.2-5.4) M/mm3 Hgb 11.6 L (12.5-16.0) gm/dL Hct 34.5 L (37.0-47.0) % MCH 33.1 H (27-31) pg Random Glucose 128 H D (70-110) mg/dL - Exam Constitutional: Present: Alert, Oriented x3, Cooperative, No distress Respiratory: Present: no respiratory distress Extremity: Present: other - LUE--> splint in place c/d/i, SILT, electronics recycler strength 4+ /5, cap refill < 3 seconds LLE--> bandages in place c/d/i, SILT, mild ttp over greater trochanter, 5/5 knee flexion/extension, dorsal pedis pulse 2+ Eye contact: Present: cooperative, good eye contact, normal speech Thoughts: Present: normal thought pattern Cauti Physician Documentation - Urinary Catheter Management Urethral (Landry) Date of Insertion: 06/18/17 Time of Insertion: 08:58 Assessment/Plan Plan Narrative: - 72 y/o female post-op day # 1 left total hip arthroplasty and left wrist ORIF of distal radius - WBAT with platform walker for LLE, #2 WB LUE - PT/OT to progress as tolerated - PO diet as tolerated - Pain control with oral pain medication - DVT prophy: SCDs, joaquin caraballo, lovenox - Hgb 11.6, continue to monitor per medicine - Problems/Diagnosis (1) Fracture of hip, left, closed Problem: Acute Qualifiers: Encounter type: initial encounter Qualified Code(s): S72.002A - Fracture of unspecified part of neck of left femur, initial encounter for closed fracture (2) Fracture of wrist Problem: Acute Qualifiers: Encounter type: initial encounter Fracture type: closed Laterality: left Qualified Code(s): S62.102A - Fracture of unspecified carpal bone, left wrist , initial encounter for closed fracture
[2017-06-19] MEDS ORDERED: ENOXAPARIN SODIUM 40 MG/0.4 ML SYRG SC SCH (16:52)
[2017-06-19] MEDS: SENNOSIDES/DOCUSATE SODIUM 1 TAB TABLET PO SCH (20:44)
[2017-06-19] MEDS: ACETAMINOPHEN 500 MG TABLET PO PRN (20:44)
[2017-06-20 05:40] LABS: Hemoglobin 10.7 gm/dL (12.5-16.0); Mean Cell Volume 96.6 fl (78-100); Mean Corpuscular Hemoglobin 33.3 pg (27-31); Mean Corpuscular Hgb Conc 34.5 g/dl (32-36); Mean Platelet Volume 9.6 fl (6.0-9.5); Platelet Count 162 K/mm3 (150-450); Red Blood Count 3.21 M/mm3 (4.2-5.4); Red Cell Distribution Width 12.7 % (11.5-14.0); White Blood Count 7.6 K/mm3 (4.0-10.5)
[2017-06-20 05:55] LABS: Anion Gap 13.6 mmol/L (6.8-13.8); BUN/Creatinine Ratio 11.3 (9.0-21.6); Carbon Dioxide 25.1 mmol/L (24-32.6); Estimated Creat Clear 73.3; Potassium 3.7 mmol/L (3.4-4.6)
[2017-06-20] MEDS: ACETAMINOPHEN 500 MG TABLET PO PRN (05:57)
[2017-06-20] MEDS ORDERED: POTASSIUM CHLORIDE 20 MEQ TABLET.SA PO ONE (09:31)
[2017-06-20 10:38] VITALS: BP 107/58
--- NOTE | 2017-06-20 11:06 | PN ---
Progess Note - Interim Narrative: Pt has had no acute events overnight. She reports pain is well managed with tylenol. Pt has been able to tolerate PO diet. Pt denies any nausea or vomiting. Exam today reveals mild ttp over LLE at the greater troch, 2+ distal pulse, SILT, wound is c/d/i, LUE--> cap refill < 3 sec, SILT, actuarial assistant strength +4/ 5. Discussed with patient f/u in 2 weeks in our outpatient. She can call if she develops any complications. - 72 y/o female post-op day # 2 left total hip arthroplasty and left wrist ORIF of distal radius - WBAT with platform walker for LLE, #2 WB LUE - PT/OT as an outpatient, continue to progress as tolerated - PO diet as tolerated - Pain control with oral pain tylenol PRN - DVT prophy: elizabeth escalante for the next 6 weeks 06/20/17 11:01
--- NOTE | 2017-06-20 11:51 | DS ---
(1) Fracture of hip, left, closed Diagnosis(s): S/P LT LILLIE on lovenox for 6 weeks . Problem: Acute Qualifiers: Encounter type: initial encounter Qualified Code(s): S72.002A - Fracture of unspecified part of neck of left femur, initial encounter for closed fracture (2) Fracture of left wrist Diagnosis(s): ORIF of left intra-articular distal radius fracture with 2 articular fragments. Problem: Acute (3) Postoperative anemia due to acute blood loss Diagnosis(s): Hemodynamically stable Problem: Acute Description of Stay: DATE OF ADMISSION: 06/17/2017. DATE OF DISCHARGE: 06/20/2017 DIAGNOSTICS: NONE. DISCHARGE SUMMARY: Alice Rossi is a 72 year old WM with no significant past medical history who fell off 2 steps from a stepladder and sustained a impacted fracture of the left femoral neck of femur and comminuted intra-articular angulated fracture of distal radial metaphases with impaction, probable ulnar styloid fracture on xrays. Dr. Nowak was consulted for the same. She underwent a left total hip arthroplasty and an ORIF of LT intra-articular distal radius fracture with interarticular fragments on 06/18/2017. Patient received IV antibiotics for 24 hours postoperatively. She required only Tylenol for pain control and utilized a platform walker due to wrist fracture. H&H dropped from 13.4/29.0 [06/17/17] to 10.7/31.0[06/20/17]; patient was hemodynamically stable w/o chest pain/shortness of breath. She will need Enoxaparin 40 mg subq daily x 6 weeks. Follow-up with orthopedics in 2 weeks. More than 30 minutes was spent which included examination of the patient, discussing plan of care, discharge plans, reconciliation of meds, preparation and dictating discharge summary. Procedures Performed: see notes below List Procedures: Date: 06/18/2017 Preoperative diagnosis: 1. Left displaced, subcapital femoral neck fracture 2. Left displaced, intra-articular distal radius fracture Postoperative diagnosis: 1. Left displaced, subcapital femoral neck fracture 2. Left displaced, intra-articular distal radius fracture with 2 articular fragments Procedure: 1. Left Total hip arthroplasty. 2. Open reduction internal fixation of left intra-articular distal radius fracture with 2 articular fragments Surgeon: Dalton Nowak M.D. Attache: Alejandro Ramirez PA-C Anesthesia: General with spinal anesthetic for pain control Complications: None Tourniquet time: 74 minutes at 250 mmHg left upper extremity Specimens: Bone for disposal. Estimated blood loss: 250 milliliters. Retained implants: Depuy [place] size 5 femoral stem standard offset. Size 58 millimeter ouside diameter 3-hole Proctor Gription acetabular cup. 58 millimeter outside by D6 millimeter inside diameter highly cross-linked acetabular liner. 36 millimeter diameter + 8.5 millimeter cobalt chromium femoral head. Cancellous 6.5mm screw 30 millimeter length. [employer] D-rad standard distal radius locking plate with associated screws. Indications: Alice Is a 72-year-old female independent community ambulator who sustained a displaced left femoral neck fracture as well as a displaced left intra-articular distal radius fracture after a fall from a ladder in her garage. She was initially seen in the [facility] ED where workup revealed the above injuries. I discussed treatment options with her and based on her activity level, polytrauma, and fracture patterns, I recommended left total hip arthroplasty as well as open reduction internal fixation of her left distal radius fracture. Patient wished to proceed with surgical treatment. The risks , benefits, and alternatives were discussed in clinic. The risks of , blood clots, bleeding, infection, nerve/tendon blood vessel/ injury, malposition of components, dislocation and/or instability of joint, intraoperative fracture, postoperative limited range of motion, persistent pain , failure of components, and need for additional procedures. Patient wished to proceed. Consent was obtained after answering all questions. Procedure: After marking the correct extremity on the floor, the patient was taken to the operating room. A timeout was performed. IV antibiotics consisting of 2 g of Ancef were administered prior to the procedure. A spinal anesthetic was induced by anesthesia. A Landry catheter was inserted. The patient was then transitioned to a lateral position on a well-padded pegboard. And an axillary roll was placed. The head was in neutral position. The non- operative down leg was well-padded with SCD and MICHELLE hose in place. The arms were supported and padded to protect from any undue pressure on the bony prominences and nerves. Well-padded anterior and posterior pelvic and chest posts were secured in order to maintain a stable position of the pelvis. This was placed so that the pelvis was perpendicular to the floor. The body was in line with the pelvis. Once it was felt that we had protected all the bony prominences and the patient was well secured with a safety belt as well, the leg was pre-scrubbed with alcohol, prepped and draped in a standard sterile fashion. A standard anterior lateral hip incision was marked out over the greater trochanter. Ioban drapes were then placed. The skin incision was then made. Sharp dissection with a scalpel utilizing cautery for hemostasis was carried out down to the gluteus and iliotibial band fascia. This was split in line with the skin incision. The greater trochanter bursa was excised. The anterior and posterior margins of the abductor tendon were identified. The anterior 1/3 of the tendon was tagged and reflected off the greater trochanter leaving a sleeve of tendon for repair at the completion of the case. This exposed the underlying hip joint capsule. A limb length stitch was placed in the skin and referenced off a dusty on the greater trochanter for evaluation of intraoperative limb lengths. An inverted T-type capsulotomy was made extending this up to the brim of the acetabulum. Using Homans to assist with elevation of the soft tissues off the anterior, superior, and inferior aspects of the femoral neck, the hip was then placed in a figure 4 position and the femoral neck fracture was completed leaving the femoral head in the acetabulum. With the leg in an externally rotated and adducted position, the cutting flag was utilized in order to dusty for a standard femoral neck cleanup cut approximately a fingerbreadth above the level of the lesser trochanter. This was done while protecting the surrounding soft tissues with Homans. The femoral head was then removed with a corkscrew and sized for guidance on preparation of the acetabulum. It was noted that there was minimal cartilage degeneration on both the femoral head and weightbearing portions of the acetabulum. We then returned the leg to the table and turned our attention to the acetabulum. While protecting the surrounding soft tissues, the labrum and remaining tissue in the fovea were excised using a scalpel and cautery. A series of reamers up to size 57 millimeter were utilized to prepare the acetabulum. The final reamer had good purchase and exposed the bleeding subchondral bone. The acetabulum was then thoroughly irrigated ensuring that all bony and cartilaginous materials were removed and the final acetabular shell was impacted into place. This was placed in approximately 45 degrees of abduction and 20 degrees of anteversion utilizing the outrigger and body axis for alignment. This had a good press fit. A 30 x 6.5mm cancellous screw was placed in the posterior superior quadrant of the acetabulum. The shell was then thoroughly irrigated and the final polyethylene was impacted into place ensuring that it seated completely. This was then protected with a sponge while we returned our attention to the femur. With the leg in a figure 4 position utilizing Homans for soft tissue protection , a box cutting osteotome, followed by Charnley awl, followed by serial reamers and broaches were utilized in order to prepare the femur. It was found that a size 5 broach gave good axial and rotational stability. The calcar reamer was utilized in order to clean up the cut edges. The proximal femur was visualized to ensure that there were no signs of fracture. A series of heads and necks were trialed. It was found that a standard neck and a + 8.5 mm femoral head gave good overall stability. There was minimal longitudinal instability. With the leg in the position of sleep the femoral head was well covered. Hip range of motion was able to reach full extension and external rotation to greater than 75 degrees prior to impingement along the posterior acetabulum. The hip was able to be flexed to greater than 90 degrees with internal rotation greater than 60 degrees prior to anterior impingement. The limb lengths were near equal based on comparison to the contralateral side in the prior placed limb length stitch. At this point the trial implants were removed. The femur was thoroughly irrigated. The final implants were impacted in the place and the hip was reduced. 1 g of vancomycin powder was placed in the joint for infection prophylaxis. The capsule was repaired with interrupted #1 Vicryl. The abductor tendon was repaired to the greater trochanter utilizing #5 Ethibond through drill holes. This was oversewn with #1 Vicryl. The fascia was closed with interrupted #1 Vicryl. The wounds were thoroughly irrigated as we closed in layers. The deep fat layers were closed with 0 Vicryl. The subcutaneous tissue was closed with interrupted 3-0 Vicryl and the skin with a running subcuticular 3-0 monocryl and sealed with a Prineo dressing. All sponge, needle , blade, and instrument counts were correct prior to closing the wounds. Sterile dressings consisting of 4 x 4's, ABD, and tape were applied. At this point all drapes were taken down and the patient was transitioned to the supine position on the operating table in preparation for ORIF of her distal radius. An arm board was attached to the left side of the table. All bony prominences were well-padded. A well-padded tourniquet was applied to the upper surgical arm. The arm was pre-scrubbed with chlorhexidine and prepped and draped in a standard sterile fashion. After exsanguinating the extremity and inflating the tourniquet to 250 mmHg, a longitudinal incision was made over the flexor carpi radialis. This was sharply dissected down through the skin to the tendon sheath. This was incised in line with the tendon. The tendon was mobilized radially and the deep fascia was incised. The flexor pollicis longus was mobilized ulnarly exposing the pronator quadratus. Pronator quadratus was elevated off the radial aspect of the distal radius exposing the fracture. The fracture was noted to be primarily extra-articular with a small dorsal lunate facet fragment. Using mini C-arm, the fracture was reduced and preliminarily pinned in place through the radial styloid. Once it was felt that we adequately preliminarily stabilized the fracture, the plate was pinned into place. This was visualized on AP and lateral views to be centered over the distal radius as well as not excessively distal. Once it was felt that the plate was in the correct position a series of distal locking and proximal non- locking screws were placed. Mini C-arm was utilized in order to confirm the length and placement of the screws. We were able to capture the dorsal lunate facet fragment with the ulnar-most locking screw through the plate. Once the wrist was stabilized, final images were obtained to ensure that the screws were not prominent dorsally nor into the joint space. The distal radial ulnar joint was then stressed in supination and pronation and neutral, and it was noted to be stable. It was felt that the fracture was adequately stabilized and the wounds were then thoroughly irrigated. Skin was closed with interrupted 4-0 nylon. Sterile dressings consisting of Xeroform, 4 x 4, soft roll, and a well- padded dorsal plaster short arm splint was applied. All sponge, sharp, and instrument counts were correct prior to closing the wounds. The patient was awoken and transferred to the postanesthesia care unit in stable condition. Postoperative condition: The plan is to admit to the medical/surgical inpatient floor postoperatively. There will be a projected 2 to 4 day hospital stay. Postoperatively 24 hours of IV antibiotics, pain control, physical therapy, occupational therapy, and medical comanagement will be utilized. Patient will be weightbearing as tolerated with anterior hip precautions and weightbearing as tolerated to the left elbow with a platform walker. Postoperative films will be obtained in the recovery room. Results and Findings: Laboratory Tests 06/17/17 06/19/17 06/20/17 15:00 06:00 05:34 Plasma Sodium 135 140 137 Potassium 3.8 3.8 3.7 Chloride 98 103 102 Carbon Dioxide 26.8 27.6 25.1 BUN 13 8 8 Creatinine 0.90 0.81 0.71 Est GFR (Non-Af Amer) 66 74 86 Random Glucose 92 128 H D 97 Calcium Adj for Albumin 8.6 Total Bilirubin 0.4 AST 22 ALT 16 L Alkaline Phosphatase 72 Troponin I <.017 Total Protein 7.0 Albumin 3.7 06/17/17 06/19/17 06/20/17 15:00 06:00 05:34 WBC 8.1 8.3 D 7.6 Hgb 13.4 11.6 L 10.7 L Hct 39.0 34.5 L 31.0 L Plt Count 231 181 162 Discharge Disposition: Home self care Disposition: Home self-care Condition: Undetermined Discharge Activity: Weight bearing - as tolerated. Discharge Diet: Low fat/chol, High Fiber Care Home Therapy: Physicial Therapy, Occupation Therapy Consultation Done:: Dr. Nowak. Problem Oriented Discharge Instructions to Patient/Family: Total Hip Replacement, Jeik-bw-Gard, Wrist Fracture Treated With Immobilization, Easy-to- Read, How and Where to Give Subcutaneous Enoxaparin Injections Additional Patient Instructions (free text): Vitamin D3 2000 units daily with food. Calcium intake from 3 different sources of food in divided doses. Weightbearing as tolerated. Fall prevention; use walker at all times. MICHELLE hose stockings for left lower extremity. Follow-up with orthopedic surgeon in 2 weeks; sooner if complications arise. Follow-up with PCP in 2-3 weeks. Tylenol 1 g 3 times a day; not to exceed 4 g per 24 hours. [facility] will call you on Thursday with follow up appointments. Prescriptions (Any new or edited meds): Enoxaparin Sodium [Lovenox] 40 mg SC Q24H #54 disp.syrin Complete Home Medications List: Complete Home Medication List: Enoxaparin Sodium [Lovenox] 40 mg SC Q24H #54 disp.syrin 06/20/17
== END 2017-06-20 13:43 | disposition home or self-care (01) | DRG 469 ==
LOC: ER 13:18 → MS 14:38
PROVIDERS: ADMIT Internal Medicine; ATTEND Internal Medicine
PROC: 0SRB0JZ Replacement of Left Hip Joint with Synthetic Substitute, Open Approach (ICD-10-PCS; principal; 2017-06-18 12:15)
PROC: 0PSJ04Z Reposition Left Radius with Internal Fixation Device, Open Approach (ICD-10-PCS; 2017-06-18 12:15)
DX: S52.572A Other intraarticular fracture of lower end of left radius, initial encounter for closed fracture (principal); S72.012A Unspecified intracapsular fracture of left femur, initial encounter for closed fracture; D62 Acute posthemorrhagic anemia; W11.XXXA Fall on and from ladder, initial encounter; Y92.008 Other place in unspecified non-institutional (private) residence as the place of occurrence of the external cause; Z87.891 Personal history of nicotine dependence; Z23 Encounter for immunization
CPT/HCPCS: 25608; 27130; 36415; 71010; 73110; 73502; 80048; 80053; 84484; 85025; 85027; 85610; 86850; 86900; 90686; 93005; 96372; 97110; 97116; 97162; 97166; 99285; G0008; J2405